=== PATIENT | female | born 1985 | race African-American/Black ===

== ENCOUNTER 2016-07-31 12:36 | Emergency (ER) | payer SELFPAY ==
--- NOTE | 2016-07-31 13:23 | ER Document Report ---
ED Skin Rash/Insect Bite/Abscs - General Chief Complaint: Skin Problem Stated Complaint: POSSIBLE ALLERGIC REACTION Information source: Patient TRAVEL OUTSIDE OF THE [place] IN LAST 30 DAYS: No - HPI Patient complains to provider of: Skin rash/lesion Onset: Yesterday Notes: Patient arrives with complaints of irritation to the anterior neck since yesterday. She states that she has very sensitive skin, she noticed that her anterior neck was scaly so she started putting hydrocortisone cream on which seemed to help. As soon as a hydrocortisone cream dried the neck become very itchy. She states that now the skin is burning. She denies any fevers. She denies any new soaps, detergents or urgency, lotions, medications. She denies any fevers. She denies any drainage. She denies any chest pain or shortness of breath. No abdominal pain. No nausea vomiting diarrhea. She has no other complaints at this point. - Related Data Allergies/Adverse Reactions: No Known Allergies Allergy (Verified 07/31/16 12:41) Past Medical History - Social History Smoking Status: Unknown if Ever Smoked Family History: Arthritis, CVA, DM, Hyperlipidemia, Hypertension, Malignancy, Thyroid Disfunction. denies: CAD Patient has suicidal ideation: No Patient has homicidal ideation: No Pulmonary Medical History: Reports: Hx Bronchitis Renal/ Medical History: Denies: Hx Peritoneal Dialysis Musculoskeltal Medical History: Reports Hx Musculoskeletal Deformity, Reports Hx Musculoskeletal Trauma Skin Medical History: Reports Hx Eczema Traumatic Medical History: Reports: Hx Fractures - wrist Past Surgical History: Reports: Hx Gynecologic Surgery - vaginal cyst 5 yrs ago , Hx Orthopedic Surgery - pins placed in hips - Immunizations Hx Diphtheria, Pertussis, Tetanus Vaccination: No - unknown Review of Systems - Review of Systems -: Yes All other systems reviewed and negative Physical Exam - Vital signs Vitals: Temp Pulse Resp BP Pulse Ox 98.5 F 59 L 18 140/98 H 100 07/31/16 12:41 07/31/16 12:41 07/31/16 12:41 07/31/16 12:41 07/31/16 12:41 - Notes Notes: GENERAL: alert, cooperative, nontoxic, no distress. HEAD: normocephalic, atraumatic EYES: conjunctiva pink without discharge, no external redness or swelling. EARS: no external swelling, no external redness NOSE: atraumatic, no external swelling MOUTH/THROAT: mucous membranes moist and pink NECK: soft, supple, full range of motion, no meningismus. CHEST: no distress, lungs clear and equal throughout. No wheezing, rales, rhonchi. CARDIAC: regular rate and rhythm, no murmur, normal capillary refill, normal pulses. BACK: full range of motion, no CVA tenderness. EXTREMITIES: full range of motion of all extremities. No redness, no swelling. NEURO: alert and oriented 3, no focal deficits, full range of motion of all extremities. PYSCH: appropriate mood, affect. Patient is cooperative. SKIN: pink, warm, dry. Patient noted to have hyperpigmentation to the anterior neck but somewhat scaly and peeling. No erythema. No drainage. There is no swelling. No vesicles. Course - Re-evaluation Re-evalutation: 07/31/16 13:24 Patient's nontoxic appearing with stable vitals. The patient has some hyperpigmentation and peeling skin to the anterior neck. No cellulitis or signs of infection. Due to the fact that she is -[place], I will place her on oral steroids as opposed to higher potency topical steroids to prevent pigmentation changes in her skin. She will also be given a prescription for Atarax to help with the itch. She was instructed to continue moisturizing the area. Follow-up with PMD if not better in one week, sooner for increased pain, fever, redness, drainage, or any further concerns. The patient is noted to have elevated blood pressure during today's emergency department visit. The patient was informed of this finding. The patient was instructed that this may be related to pre-hypertension and requires further evaluation with a primary care provider. The patient has no hypertensive symptoms at this time. The patient's emergency department workup and current diagnosis were explained to the patient and or family. Follow-up instructions were provided. Medications if prescribed were discussed. Instructions for when to return to the emergency department including specific worrisome symptoms were discussed with the patient and/or family. - Vital Signs Vital signs: Temp Pulse Resp BP Pulse Ox 98.5 F 59 L 18 140/98 H 100 07/31/16 12:41 07/31/16 12:41 07/31/16 12:41 07/31/16 12:41 07/31/16 12:41 Discharge - Discharge Clinical Impression: Dermatitis Condition: Stable Disposition: HOME, SELF-CARE Instructions: Atopic Dermatitis (Eczema) ([facility]) Additional Instructions: Take medications as prescribed. Keep skin clean and dry. Apply moisturizers to the skin. Follow-up if not better in one week, sooner for increased pain, fever, redness, drainage, any further concerns. Your blood pressure was elevated during today's visit. Have this rechecked with your doctor. Prescriptions: Hydroxyzine HCl [Atarax 25 mg Tablet] 1 - 2 tab PO QID #25 tablet Prednisone 60 mg PO DAILY #15 tablet Forms: Elevated Blood Pressure
[2016-07-31 13:35] VITALS: BP 118/78
== END 2016-07-31 13:38 | disposition home or self-care (01) ==
LOC: ER 12:36
DX: L30.9 Dermatitis, unspecified (principal); R03.0 Elevated blood-pressure reading, without diagnosis of hypertension
CPT/HCPCS: 99282

== ENCOUNTER 2016-11-25 21:34 | Emergency (ER) | payer SELFPAY ==
[2016-11-25 23:07] VITALS: BP 128/85
[2016-11-26] MEDS ORDERED: LIDOCAINE 1% INJ-PF (10 MG/ML) 30 ML SDV INJ ONE (02:22)
[2016-11-26] MEDS ORDERED: DIPH/PERTUSS(ACELL)/TETANUS VAC/PF 0.5 ML SYR (>=10YO) IM ONE (02:23)
[2016-11-26] MEDS ORDERED: OXYCODONE-ACETAMINOPHEN 5-325 MG TABLET PO ONE (02:23)
[2016-11-26] MEDS ORDERED: ONDANSETRON 4 MG TAB.RAPDIS PO ONE (02:23)
--- NOTE | 2016-11-26 02:25 | ER Document Report ---
ED Animal Bite - General Chief Complaint: Dog Bite Stated Complaint: DOG BITE Time Seen by Provider: 11/26/16 02:13 Notes: Patient is a 31-year-old female that comes emergency department for chief complaint of dog bite, she states she was in her neighbors backyard when her neighbors dog attacked her, biting her on the left wrist, left thigh, left leg, right leg. Dog is up-to-date on vaccinations. Patient is not up-to-date on her tetanus. Patient reports the dog was a [place]. TRAVEL OUTSIDE OF THE [place] IN LAST 30 DAYS: No - Related Data Allergies/Adverse Reactions: No Known Allergies Allergy (Verified 11/25/16 23:07) Past Medical History - General Information source: Patient - Social History Smoking Status: Never Smoker Frequency of alcohol use: None Drug Abuse: None Lives with: Family Family History: Arthritis, CVA, DM, Hyperlipidemia, Hypertension, Malignancy, Thyroid Disfunction. denies: CAD Patient has suicidal ideation: No Patient has homicidal ideation: No Pulmonary Medical History: Reports: Hx Bronchitis Renal/ Medical History: Denies: Hx Peritoneal Dialysis Musculoskeltal Medical History: Reports Hx Musculoskeletal Deformity, Reports Hx Musculoskeletal Trauma Skin Medical History: Reports Hx Eczema Traumatic Medical History: Reports: Hx Fractures - wrist Past Surgical History: Reports: Hx Gynecologic Surgery - vaginal cyst 5 yrs ago , Hx Orthopedic Surgery - pins placed in hips - Immunizations Hx Diphtheria, Pertussis, Tetanus Vaccination: No - unknown Review of Systems - Review of Systems Constitutional: No symptoms reported EENT: No symptoms reported Cardiovascular: No symptoms reported Respiratory: No symptoms reported Gastrointestinal: No symptoms reported Genitourinary: No symptoms reported Female Genitourinary: No symptoms reported Musculoskeletal: See HPI Skin: See HPI Hematologic/Lymphatic: No symptoms reported Neurological/Psychological: No symptoms reported Physical Exam - Vital signs Vitals: Temp Pulse Resp BP Pulse Ox 97.9 F 53 L 16 128/85 H 100 11/25/16 23:04 11/25/16 23:04 11/25/16 23:04 11/25/16 23:04 11/25/16 23:04 Interpretation: Normal - General General appearance: Appears well, Alert In distress: None - HEENT Head: Normocephalic, Atraumatic Eyes: Normal Pupils: PERRL - Respiratory Respiratory status: No respiratory distress Chest status: Nontender Breath sounds: Normal Chest palpation: Normal - Cardiovascular Rhythm: Regular Heart sounds: Normal auscultation Murmur: No - Abdominal Inspection: Normal Distension: No distension Bowel sounds: Normal Tenderness: Nontender Organomegaly: No organomegaly - Back Back: Normal, Nontender - Extremities General upper extremity: Other - Left dorsal forearm with a 0.5 partial- thickness laceration, bleeding. Normal upper extremity exam otherwise with normal distal neurovascular exam. General lower extremity: Other - Distal right leg with bite kimble over the distal extremity with 3 open bleeding wounds. Superficial abrasions and bruising to the left thigh and also to the left distal leg. Normal distal N/V exam. Normal strength. - Neurological Neuro grossly intact: Yes Cognition: Normal Orientation: AAOx4 [place] Coma Scale Eye Opening: Spontaneous [place] Coma Scale Verbal: Oriented [place] Coma Scale Motor: Obeys Commands [place] Coma Scale Total: 15 Speech: Normal Motor strength normal: LUE, RUE, LLE, RLE Sensory: Normal - Psychological Associated symptoms: Normal affect, Normal mood - Skin Skin Temperature: Warm Skin Moisture: Dry Skin Color: Normal Course - Re-evaluation Re-evalutation: Cleaned, dressed, wounds. Partially closed some of the wounds. Updated tetanus. Giving antibiotics. Discussed wound care, followup, and return precautions. Patient states understanding and agreement. - Vital Signs Vital signs: Temp Pulse Resp BP Pulse Ox 97.9 F 53 L 16 128/85 H 100 11/25/16 23:04 11/25/16 23:04 11/25/16 23:04 11/25/16 23:04 11/25/16 23:04 Procedures - Laceration/Wound Repair right leg #1 Wound length (cm): 1.5 Wound's Depth, Shape: Linear Anesthetic type: 1% Lidocaine Volume Anesthetic (mLs): 2 Wound explored: Clean, No foreign body removed Irrigated w/ Saline (mLs): 40 Wound Repaired With: Sutures Suture Size/Type: 4:0, Nylon Number of Sutures: 3 Layer Closure?: No Post-procedure wound care: Sterile dressing applied Post-procedure NV exam normal: Yes Complications: No right leg #2 Wound length (cm): 1 Wound's Depth, Shape: Superficial Anesthetic type: 1% Lidocaine Volume Anesthetic (mLs): 2 Wound explored: Clean, No foreign body removed Irrigated w/ Saline (mLs): 30 Wound Repaired With: Sutures Suture Size/Type: 4:0, Nylon Number of Sutures: 1 Layer Closure?: No Post-procedure wound care: Sterile dressing applied Post-procedure NV exam normal: Yes Complications: No left forearm Wound length (cm): 0.5 Wound's Depth, Shape: Linear Laceration pre-procedure: Sterile PPE donned Wound explored: Clean Wound Repaired With: Sutures Suture Size/Type: 4:0, Nylon Number of Sutures: 1 Post-procedure wound care: Sterile dressing applied Post-procedure NV exam normal: Yes Complications: No Discharge - Discharge Clinical Impression: Lacerations of multiple sites without complication Dog bite Qualifiers: Encounter type: initial encounter Qualified Code(s): W54.0XXA - Bitten by dog, initial encounter Condition: Stable Disposition: HOME, SELF-CARE Instructions: Tetanus Immunization Given ([facility]) Additional Instructions: Suture needs to come out in 5-7 days Keep areas clean, clean with soap and water, dab dry. Keep thin film of antibiotic over the areas. Take Augmentin antibiotic as prescribed. Follow-up with primary care. Return to emergency department immediately for any concerning symptoms including redness, swelling, discolored drainage, fever , or any other concerning symptoms. Prescriptions: Amox Tr/Potassium Clavulanate [Augmentin 875-125 Tablet] 1 tab PO BID 7 Days tablet
[2016-11-26] MEDS ORDERED: AMOXICILLIN TRIHYDRATE 500 MG CAPSULE PO ONE (02:27)
[2016-11-26] MEDS ORDERED: AMOXICILLIN TR/POT CLAVULANATE 500-125 MG TAB PO ONE (02:27)
== END 2016-11-26 05:16 | disposition home or self-care (01) ==
LOC: ER 21:34
PROC: 0HQEXZZ Repair Left Lower Arm Skin, External Approach (ICD-10-PCS; principal; 2016-11-25)
PROC: 0HQLXZZ Repair Left Lower Leg Skin, External Approach (ICD-10-PCS; 2016-11-25)
DX: S51.852A Open bite of left forearm, initial encounter (principal); S81.852A Open bite, left lower leg, initial encounter; S70.372A Other superficial bite of left thigh, initial encounter; W54.0XXA Bitten by dog, initial encounter; Y92.007 Garden or yard of unspecified non-institutional (private) residence as the place of occurrence of the external cause; Z23 Encounter for immunization
CPT/HCPCS: 99282; 90471; 90715; 12002; S0119; J3490

== ENCOUNTER 2017-01-24 21:37 | Emergency (ER) | payer SELFPAY ==
[2017-01-24 22:31] VITALS: BP 124/84
--- NOTE | 2017-01-24 23:29 | ER Document Report ---
HPI - HPI Pain Level: 4 Notes: Patient is a 31-year-old female who presents ED complaining of a ruptured cyst/ abscess to the posterior left ear. Patient states that it was inflamed over the last few days, but has since released the material on the inside today. Patient states that she does continue to have some pain and discomfort in that area that radiates down into her jaw, but the pain is not as bad as it once was. Patient states that she does have a history of a cyst in that area and recurrence flareups. She denies any other significant past medical history or drug allergies. Denies any smoking or IV drug use. Denies any history of MRSA. Denies any headache, fever, head injury, neck pain, URI, sore throat, chest pain, palpitations, syncope, cough, shortness of breath, wheeze, dyspnea, abdominal pain, nausea/vomiting/diarrhea. - ROS Notes: REVIEW OF SYSTEMS: CONSTITUTIONAL : Denies fever, chills, or sweats. Denies recent illness. EENT: Denies eye, ear, throat, or mouth pain or symptoms. Denies nasal or sinus congestion or discharge. Denies throat, tongue, or mouth swelling or difficulty swallowing. CARDIOVASCULAR: Denies chest pain. Denies palpitations or racing or irregular heart beat. Denies ankle edema. RESPIRATORY: Denies cough, cold, or chest congestion. Denies shortness of breath, difficulty breathing, or wheezing. GASTROINTESTINAL: Denies abdominal pain or distention. Denies nausea, vomiting , or diarrhea. Denies blood in vomitus, stools, or per rectum. Denies black, tarry stools. Denies constipation. GENITOURINARY: Denies difficulty urinating, painful urination, burning, frequency, blood in urine, or discharge. MUSCULOSKELETAL: Denies back or neck pain or stiffness. Denies joint pain or swelling. SKIN: see hpi NEUROLOGICAL: Denies confusion or altered mental status. Denies passing out or loss of consciousness. Denies dizziness or lightheadedness. Denies headache. Denies weakness or paralysis or loss of use of either side. Denies problems with gait or speech. Denies sensory loss, numbness, or tingling. ALL OTHER SYSTEMS REVIEWED AND NEGATIVE. Dictation was performed using [employer] voice recognition software - CONSTITUTIONAL Constitutional: DENIES: Fever, Chills - EENT EENT: DENIES: Sore Throat, Ear Pain, Eye problems - GASTROINTESTINAL Gastrointestinal: DENIES: Abdominal Pain - REPRODUCTIVE Reproductive: DENIES: : - MUSCULOSKELETAL Musculoskeletal: DENIES: Extremity pain - DERM Skin Color: Normal Past Medical History - Social History Smoking Status: Never Smoker Family History: Arthritis, CVA, DM, Hyperlipidemia, Hypertension, Malignancy, Thyroid Disfunction. denies: CAD Patient has suicidal ideation: No Patient has homicidal ideation: No Pulmonary Medical History: Reports: Hx Bronchitis Renal/ Medical History: Denies: Hx Peritoneal Dialysis Musculoskeltal Medical History: Reports Hx Musculoskeletal Deformity, Reports Hx Musculoskeletal Trauma Skin Medical History: Reports Hx Eczema Traumatic Medical History: Reports: Hx Fractures - wrist Past Surgical History: Reports: Hx Gynecologic Surgery - vaginal cyst 5 yrs ago , Hx Orthopedic Surgery - pins placed in hips - Immunizations Hx Diphtheria, Pertussis, Tetanus Vaccination: No - unknown Vertical Provider Document - CONSTITUTIONAL Agree With Documented VS: Yes Notes: PHYSICAL EXAMINATION: GENERAL: Well-appearing, well-nourished and in no acute distress. HEAD: Atraumatic, normocephalic. EYES: Pupils equal round and reactive to light, extraocular movements intact, sclera anicteric, conjunctiva are normal. ENT: EAC clear b/l. TM's intact b/l without erythema, fluid, or perforation. Nares patent and without discharge. oropharynx clear without exudates. No tonsilar hypertrophy or erythema. Moist mucous membranes. No sinus tenderness. no mastoid tenderness or erythema. No dental pain. Uvula midline. No palatine shift. No tongue protrusion. NECK: Normal range of motion, supple without lymphadenopathy LUNGS: Breath sounds clear to auscultation bilaterally and equal. No wheezes rales or rhonchi. HEART: Regular rate and rhythm without murmurs, rubs, gallops. Extremities: No cyanosis, clubbing, or edema b/l. NEUROLOGICAL: Cranial nerves grossly intact. Normal speech, normal gait. Normal sensory, motor exams PSYCH: Normal mood, normal affect. SKIN: Pt has noted hydradenitis. + small abscess area that has mild erythema w/ o induration or streaks. No discharge. + tenderness. - INFECTION CONTROL TRAVEL OUTSIDE OF THE [place] IN LAST 30 DAYS: No - RESPIRATORY O2 Sat by Pulse Oximetry: 100 Course - Re-evaluation Re-evalutation: 01/24/17 23:27 Patient is an afebrile, well-hydrated, 31-year-old female who presents to the ED with a already drained abscess area to the posterior left ear. Vitals are stable. PE is otherwise unremarkable. No incision and drainage warranted at this time. I will send her home with a prescription for Keflex and Bactrim to take as directed. Conservative measures for symptoms. Recheck with your PCM this week. Consider seeing a general surgeon to excise the cyst to prevent recurrence. Return to the ED with any worsening/concerning symptoms otherwise as reviewed in discharge. Patient is in agreement. - Vital Signs Vital signs: Temp Pulse Resp BP Pulse Ox 98.3 F 49 L 16 124/84 100 01/24/17 22:29 01/24/17 22:29 01/24/17 22:29 01/24/17 22:29 01/24/17 22:29 Discharge - Discharge Clinical Impression: Abscess Condition: Stable Disposition: HOME, SELF-CARE Instructions: Abscess ([facility]), Trimethoprim-Sulfa ([facility]), Cephalexin ([facility]) Additional Instructions: Maintain adequate fluid intake Tylenol/ibuprofen as needed Take antibiotics as directed Monitor for any worsening symptoms or signs of infection Recheck with your PCM this week Return to the ED with any worsening symptoms and/or development of fever, headache, chest pain, palpitations, syncope, shortness of breath, trouble breathing, abdominal pain, n/v/d, red streaks, worsening abscess/discharge, or other worsening symptoms that are concerning to you. Prescriptions: Cephalexin Monohydrate [Keflex 500 mg Capsule] 500 mg PO BID #20 capsule Sulfamethoxazole/Trimethoprim [Bactrim Ds Tablet] 1 each PO BID #20 tablet Referrals: PUJA WAGNER MD [ACTIVE STAFF] - Follow up as needed
== END 2017-01-24 23:30 | disposition home or self-care (01) ==
LOC: ER 21:37
DX: H66.42 Suppurative otitis media, unspecified, left ear (principal); R68.84 Jaw pain
CPT/HCPCS: 99282

== ENCOUNTER 2017-01-27 13:25 | Emergency (ER) | payer SELFPAY ==
[2017-01-27 13:47] VITALS: BP 134/89
[2017-01-27] MEDS ORDERED: IBUPROFEN 800 MG TABLET PO ONE (15:12)
[2017-01-27] MEDS ORDERED: HYDROCODONE/ACETAMINOPHEN 5-325 MG TABLET PO ONE (15:12)
--- NOTE | 2017-01-27 15:13 | ER Document Report ---
HPI - HPI Patient complains to provider of: dental pain Onset: Other - 3 days Onset/Duration: Persistent Quality of pain: Achy Pain Level: 5 Context: Patient presents complaining of the left upper jaw for the past 3 days. Patient denies any fever. Patient states she has a broken tooth. Patient has been taking Bactrim and Keflex to treat a ruptured cyst behind her left ear. Patient states that the cystic lesion is starting to heal and is not giving her problems although she is continued to have dental pain. Associated Symptoms: Other - Dental pain. denies: Fever Exacerbated by: Denies Relieved by: Denies Similar symptoms previously: Yes Recently seen / treated by doctor: Yes - ROS ROS below otherwise negative: Yes Systems Reviewed and Negative: Yes All other systems reviewed and negative - CONSTITUTIONAL Constitutional: DENIES: Fever, Chills - EENT Notes: Dental pain - GASTROINTESTINAL Gastrointestinal: DENIES: Nausea, Patient vomiting - REPRODUCTIVE Reproductive: DENIES: : - DERM Skin Color: Normal Skin Problems: None Past Medical History - General Information source: Patient - Social History Smoking Status: Never Smoker Frequency of alcohol use: None Drug Abuse: None Occupation: None Lives with: Family Family History: Arthritis, CVA, DM, Hyperlipidemia, Hypertension, Malignancy, Thyroid Disfunction. denies: CAD Patient has suicidal ideation: No Patient has homicidal ideation: No Pulmonary Medical History: Reports: Hx Bronchitis Renal/ Medical History: Denies: Hx Peritoneal Dialysis Musculoskeltal Medical History: Reports Hx Musculoskeletal Deformity, Reports Hx Musculoskeletal Trauma Skin Medical History: Reports Hx Eczema Traumatic Medical History: Reports: Hx Fractures - wrist Past Surgical History: Reports: Hx Gynecologic Surgery - vaginal cyst 5 yrs ago , Hx Orthopedic Surgery - pins placed in hips - Immunizations Hx Diphtheria, Pertussis, Tetanus Vaccination: No - unknown Vertical Provider Document - CONSTITUTIONAL Agree With Documented VS: Yes Exam Limitations: No Limitations General Appearance: WD/WN, No Apparent Distress - INFECTION CONTROL TRAVEL OUTSIDE OF THE [place] IN LAST 30 DAYS: No - HEENT HEENT: Atraumatic, Normocephalic Mouth Diagram: 1 - Dental fracture, tenderness, no gingival abscess, no trismus Notes: Small cystic lesion to the posterior aspect of left pinna, no erythema, no cellulitis, no mastoid tenderness or swelling - NECK Neck: Normal Inspection, Supple. negative: Lymphadenopathy-Left, Lymphadenopathy-Right - RESPIRATORY Respiratory: No Respiratory Distress O2 Sat by Pulse Oximetry: 98 - BACK Back: Normal Inspection - MUSCULOSKELETAL/EXTREMETIES Musculoskeletal/Extremeties: MAEW - NEURO Level of Consciousness: Awake, Alert, Appropriate Motor/Sensory: No Motor Deficit - DERM Integumentary: Warm, Dry, No Rash Course - Re-evaluation Re-evalutation: 01/28/17 Controlled substance database reviewed - Vital Signs Vital signs: Temp Pulse Resp BP Pulse Ox 98.3 F 55 L 18 134/89 H 98 01/27/17 13:46 01/27/17 13:46 01/27/17 13:46 01/27/17 13:46 01/27/17 13:46 Discharge - Discharge Clinical Impression: Toothache Condition: Stable Disposition: HOME, SELF-CARE Instructions: Oral Narcotic Medication ([facility]), Toothache ([facility]) Additional Instructions: Return immediately for any new or worsening symptoms Followup with your primary care provider, call tomorrow to make a followup appointment Finish your antibiotics that you were previously prescribed Prescriptions: Hydrocodone/Acetaminophen [[place] 5-325 Tablet] 1 each PO Q4 PRN #15 tablet PRN Reason: Naproxen [Naprosyn 250 Nmg Tablet] 1 tab PO BID #14 tablet Referrals: [facility] [Provider Group] - Follow up tomorrow
== END 2017-01-27 15:35 | disposition home or self-care (01) ==
LOC: ER 13:25
DX: K08.9 Disorder of teeth and supporting structures, unspecified (principal); L98.9 Disorder of the skin and subcutaneous tissue, unspecified
CPT/HCPCS: 99282

== ENCOUNTER 2017-05-27 13:59 | Emergency (ER) | payer SELFPAY ==
[2017-05-27 14:09] VITALS: BP 115/70
--- NOTE | 2017-05-27 14:26 | ER Document Report ---
HPI - HPI Patient complains to provider of: Right hand numbness and tingling Onset: Other - 1 week Onset/Duration: Intermittent Pain Level: 5 Context: 32-year-old female complaining of right hand numbness and tingling especially at night it wakes her up. No history of carpal tunnel syndrome. No neck injury or neck pain. Associated Symptoms: None Exacerbated by: Movement Relieved by: Denies Similar symptoms previously: No Recently seen / treated by doctor: No - ROS ROS below otherwise negative: Yes Systems Reviewed and Negative: Yes All other systems reviewed and negative - REPRODUCTIVE Reproductive: DENIES: : Past Medical History - General Information source: Patient - Social History Smoking Status: Unknown if Ever Smoked Frequency of alcohol use: None Drug Abuse: None Lives with: Family Family History: Arthritis, CVA, DM, Hyperlipidemia, Hypertension, Malignancy, Thyroid Disfunction Pulmonary Medical History: Reports: Hx Bronchitis Renal/ Medical History: Denies: Hx Peritoneal Dialysis Musculoskeltal Medical History: Reports Hx Musculoskeletal Deformity, Reports Hx Musculoskeletal Trauma Skin Medical History: Reports Hx Eczema Traumatic Medical History: Reports: Hx Fractures - wrist Past Surgical History: Reports: Hx Gynecologic Surgery - vaginal cyst 5 yrs ago , Hx Orthopedic Surgery - pins placed in hips - Immunizations Hx Diphtheria, Pertussis, Tetanus Vaccination: No - unknown Vertical Provider Document - CONSTITUTIONAL Agree With Documented VS: Yes Exam Limitations: No Limitations - INFECTION CONTROL TRAVEL OUTSIDE OF THE [place] IN LAST 30 DAYS: No - HEENT HEENT: Normocephalic - NECK Neck: Supple - non tender c spine - RESPIRATORY O2 Sat by Pulse Oximetry: 99 - MUSCULOSKELETAL/EXTREMETIES Musculoskeletal/Extremeties: MAEW, FROM, Tender - possible ganglion cyst between prox 2nd and 3rd MC right hand, positive tinnels and phalen test. N/V intact. - NEURO Level of Consciousness: Awake, Alert, Appropriate Motor/Sensory: No Motor Deficit, No Sensory Deficit. negative: Sensory Deficit , Weak Motor Strength RUE - DERM Integumentary: Warm, Dry, No Rash Course - Vital Signs Vital signs: Temp Pulse Resp BP Pulse Ox 98.6 F 50 L 16 115/70 99 05/27/17 14:08 05/27/17 14:08 05/27/17 14:08 05/27/17 14:08 05/27/17 14:08 Procedures - Immobilization Right Wrist Time completed: 15:10 Immobilizer type: Cock-up Performed by: PCT Post-Proc Neuro Vasc Exam: Normal Alignment checked and good: Yes Discharge - Discharge Clinical Impression: Ganglion cyst Carpal tunnel syndrome Qualifiers: Laterality: right Qualified Code(s): G56.01 - Carpal tunnel syndrome, right upper limb Condition: Good Disposition: HOME, SELF-CARE Instructions: Carpal Tunnel Syndrome ([facility]), Ganglion Cyst ([facility]) Additional Instructions: rest the wrist joint with the splint schedule appt with orthopedist for evaluation motrin to er any concerns Prescriptions: Ibuprofen [Motrin 800 mg Tablet] 800 mg PO Q8HP PRN #30 tablet PRN Reason: Referrals: AMANDA HERNADEZ DO [ACTIVE STAFF] - Follow up tomorrow (call tomorrow for appointment next week)
== END 2017-05-27 15:22 | disposition home or self-care (01) ==
LOC: ER 13:59
DX: M67.431 Ganglion, right wrist (principal); G56.01 Carpal tunnel syndrome, right upper limb; R20.0 Anesthesia of skin
CPT/HCPCS: 99283; L3908

== ENCOUNTER → 2018-05-13 | Outpatient (CLI) | payer BC ==
--- NOTE | 2018-05-13 09:18 | WOMENS IMAGING REPORT ---
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 TECHNIQUE: Dynamic and static grayscale images acquired of the pelvis via transvaginal approach and recorded on PACS. Additional selected color Doppler and spectral images recorded. LIMITATIONS: None. FINDINGS: UTERUS: Contour normal. No mass. ENDOMETRIAL STRIPE: No focal or generalized thickening. No masses. CERVIX: No nabothian cysts. RIGHT OVARY AND DOPPLER: Normal size. No worrisome masses. Normal arterial vascular flow without evid ence for torsion. LEFT OVARY AND DOPPLER: Normal size. No worrisome masses. Normal arterial vascular flow without evide nce for torsion. FREE FLUID: None noted. OTHER: No other significant finding. MEASUREMENTS: UTERUS: 7.0 x 3.3 x 4.0 cm ENDOMETRIAL STRIPE: 11 mm RIGHT OVARY: 3.5 x 2.5 x 2.7 cm LEFT OVARY: 3.4 x 2.6 x 2.8 cm IMPRESSION: 1. NORMAL TRANSVAGINAL PELVIC ULTRASOUND. TECHNICAL DOCUMENTATION: JOB ID: [id number] test company- All Rights Reserved Rev-08/20 Reading location - IP/workstation name: [email or web address]
== END ==
LOC: RAD 07:48
PROVIDERS: ATTEND Obstetrics & Gynecology Gynecology
DX: D25.9 Leiomyoma of uterus, unspecified (principal); E66.01 Morbid (severe) obesity due to excess calories
CPT/HCPCS: 76830